=== PATIENT | male | born 1975 | race American Indian/Alaskan Native ===

== ENCOUNTER 2016-06-25 14:09 | Emergency (ER) | payer MEDICAID | END 2016-06-25 15:14 | disposition left against medical advice (07) | LOC: DL.ED 14:09 | DX: Z53.21 Procedure and treatment not carried out due to patient leaving prior to being seen by health care provider (principal) ==

== ENCOUNTER 2017-05-02 14:38 | Emergency (ER) | payer MEDICAID ==
[2017-05-02] MEDS ORDERED: Aspirin 81 MG Tab.Chew PO ONE (15:00)
--- NOTE | 2017-05-02 15:15 | EDM.PDOC ---
ED HPI GENERAL MEDICAL PROBLEM - General Chief Complaint: Chest Pain Stated Complaint: IN BY AMBULANCE Time Seen by Provider: 05/02/17 14:53 Source of Information: Reports: Patient, Family, RN, RN Notes Reviewed History Limitations: Reports: No Limitations - History of Present Illness INITIAL COMMENTS - FREE TEXT/NARRATIVE: Pt [facility] with c/o chest pain. He states he has had dull midsternal chest pain for about 1 year. He states at times it is more intense. He states he had an angiogram in [place], [place] and was told that he has 80% blockage in one of his coronary vessels. Pt states another doctor has told him that his "lungs are shot". Patient states other health problems include hypertension. Onset: Gradual, Unknown/Unsure Location: Reports: Chest Quality: Reports: Ache, Dull Severity: Moderate Improves with: Reports: None Worsens with: Reports: None Associated Symptoms: Reports: No Other Symptoms Middle Chest Pain Score (Numeric/FACES): 2 - Related Data Allergies Allergy/AdvReac Type Severity Reaction Status Date / Time No Known Allergies Allergy Verified 05/02/17 14:52 Home Meds: Home Meds Aspirin [Halfprin] 81 mg PO DAILY 09/09/13 [History] Lisinopril [Zestril] 20 mg PO DAILY 09/09/13 [History] Simvastatin [Zocor] 40 mg PO DAILY 06/03/16 [History] Past Medical History - Past Health History Medical/Surgical History: Denies Medical/Surgical History HEENT History: Reports: Impaired Vision Cardiovascular History: Reports: High Cholesterol, Hypertension Musculoskeletal History: Reports: Fracture - Infectious Disease History Infectious Disease History: Reports: Chicken Pox - Past Surgical History Cardiovascular Surgical History: Reports: None Musculoskeletal Surgical History: Reports: None Social & Family History - Family History Family Medical History: Noncontributory - Tobacco Use Smoking Status *Q: Current Every Day Smoker Years of Tobacco use: 20 Packs/Tins Daily: 0.2 - Caffeine Use Caffeine Use: Reports: Coffee - Recreational Drug Use Recreational Drug Use: No Recreational Drug Type: Reports: Marijuana/Hashish Recreational Drug Use Frequency: Socially ED ROS GENERAL - Review of Systems Review Of Systems: ROS reveals no pertinent complaints other than HPI. ED EXAM, GENERAL - Physical Exam Exam: See Below Exam Limited By: No Limitations General Appearance: Alert, WD/WN, No Apparent Distress Eye Exam: Bilateral Eye: EOMI, Normal Inspection, PERRL Ears: Normal External Exam, Hearing Grossly Normal Nose: Normal Inspection Throat/Mouth: Normal Inspection, Normal Voice, No Airway Compromise Head: Atraumatic, Normocephalic Neck: Normal Inspection, Supple, Non-Tender, Full Range of Motion Respiratory/Chest: No Respiratory Distress, No Accessory Muscle Use, Chest Non- Tender, Decreased Breath Sounds, Crackles (bases bilaterally) Cardiovascular: Normal Peripheral Pulses, Regular Rate, Rhythm, No Edema, No Gallop, No JVD, No Murmur, No Rub Peripheral Pulses: 2+: Radial (L), Radial (R) GI/Abdominal: Normal Bowel Sounds, Soft, Non-Tender, No Organomegaly, No Distention, No Abnormal Bruit, No Mass (Male) Exam: Deferred Rectal (Males) Exam: Deferred Back Exam: Normal Inspection, Full Range of Motion Extremities: Normal Inspection, Normal Range of Motion, Non-Tender, No Pedal Edema, Normal Capillary Refill Neurological: Alert, Oriented, CN II-XII Intact, Normal Cognition, Normal Gait, Normal Reflexes, No Motor/Sensory Deficits Psychiatric: Normal Affect, Normal Mood Skin Exam: Warm, Dry, Intact, Normal Color, No Rash Lymphatic: No Adenopathy EKG INTERPRETATION EKG Date: 05/02/17 Time: 14:53 Rhythm: NSR Rate (Beats/Min): 69 [place]: Normal P-Wave: Present QRS: Normal ST-T: Normal QT: Normal Comparison: Change From Previous EKG Course - Vital Signs Last Recorded V/S: Last Vital Signs Temp 98.0 F 05/02/17 14:47 Pulse 68 05/02/17 15:39 Resp 16 05/02/17 15:39 BP 122/80 05/02/17 15:39 Pulse Ox 95 05/02/17 15:39 - Orders/Labs/Meds Orders: Active Orders 24 hr Category Date Time Status EKG Documentation Completion [RC] STAT Care 05/02/17 14:59 Active Peripheral IV Care [RC] . DIRECTED Care 05/02/17 15:00 Active DRUG SCREEN URINE BIORAD [URCHEM] Stat Lab 05/02/17 15:52 Received UA W/MICROSCOPIC [URIN] Stat Lab 05/02/17 15:52 Received Sodium Chloride 0.9% [Saline Flush] Med 05/02/17 14:58 Active 10 ml FLUSH ASDIRECTED PRN Peripheral IV Insertion Adult [OM.PC] Stat Oth 05/02/17 14:59 Ordered Medication Orders Sodium Chloride (Saline Flush) 10 ml FLUSH ASDIRECTED PRN PRN Reason: Keep Vein Open Last Admin: 05/02/17 15:39 Dose: 10 ml Admin: 05/02/17 15:20 Dose: 10 ml Labs: Laboratory Tests 05/02/17 05/02/17 Range/Units 15:12 15:12 WBC 13.3 H (5.0-10.0) 10^3/uL RBC 5.11 (4.6-6.2) 10^6/uL Hgb 16.0 (14.0-18.0) g/dL Hct 47.8 (40.0-54.0) % MCV 93.5 (80-100) fL MCH 31.3 (27.0-34.0) pg MCHC 33.5 (33.0-35.0) g/dL Plt Count 266 (150-450) 10^3/uL Neut % (Auto) 70.6 (42.2-75.2) % Lymph % (Auto) 22.4 (20.5-50.1) % [place] % (Auto) 5.6 (2-8) % Eos % (Auto) 1.2 (1.0-3.0) % Baso % (Auto) 0.2 (0.0-1.0) % Sodium 138 (135-145) mmol/L Potassium 4.4 (3.6-5.0) mmol/L Chloride 104 (101-111) mmol/L Carbon Dioxide 27.0 (21.0-31.0) mmol/L Anion Gap 11.4 BUN 13 (7-18) mg/dL Creatinine 1.1 (0.6-1.3) mg/dL Est Cr Clr Drug Dosing 89.41 mL/min Estimated GFR (MDRD) > 60 BUN/Creatinine Ratio 11.81 Glucose 92 (74-105) mg/dL Calcium 9.0 (8.4-10.2) mg/dl Total Bilirubin 0.2 (0.2-1.0) mg/dL AST 21 (10-42) IU/L ALT 23 (10-60) IU/L Alkaline Phosphatase 86 (42-121) IU/L Troponin I < 0.02 (0.00-0.02) ng/ml Total Protein 7.4 (6.7-8.2) g/dl Albumin 4.3 (3.2-5.5) g/dl Globulin 3.1 Albumin/Globulin Ratio 1.39 Meds: Medications Generic Name Dose Route Start Last Admin Trade Name Freq PRN Reason Stop Dose Admin Sodium Chloride 10 ml 05/02/17 14:58 05/02/17 15:39 Saline Flush FLUSH 10 ml ASDIRECTED PRN Administration Keep Vein Open Discontinued Medications Generic Name Dose Route Start Last Admin Trade Name Freq PRN Reason Stop Dose Admin Al Hydroxide/Mg Hydroxide 30 ml 05/02/17 15:46 05/02/17 15:56 Gi Cocktail PO 05/02/17 15:47 30 ml ONETIME ONE Administration Aspirin 324 mg 05/02/17 15:00 05/02/17 15:19 Aspirin PO 05/02/17 15:01 324 mg ONETIME ONE Administration - Radiology Interpretation Free Text/Narrative:: Portable chest xray: See rad report Departure - Departure Time of Disposition: 16:21 Disposition: Home, Self-Care 01 Condition: Fair Clinical Impression: Non-cardiac chest pain Instructions: Nonspecific Chest Pain, [id number] Forms: ED Department Discharge Additional Instructions: RX: Omeprazole Follow up with your primary care facility for recheck of White blood count. - My Orders Last 24 Hours: My Active Orders 05/02/17 14:58 Sodium Chloride 0.9% [Saline Flush] 10 ml FLUSH ASDIRECTED PRN 05/02/17 14:59 EKG Documentation Completion [RC] STAT Peripheral IV Insertion Adult [OM.PC] Stat 05/02/17 15:00 Peripheral IV Care [RC] . DIRECTED 05/02/17 15:52 DRUG SCREEN URINE BIORAD [URCHEM] Stat UA W/MICROSCOPIC [URIN] Stat - Assessment/Plan Last 24 Hours: My Active Orders 05/02/17 14:58 Sodium Chloride 0.9% [Saline Flush] 10 ml FLUSH ASDIRECTED PRN 05/02/17 14:59 EKG Documentation Completion [RC] STAT Peripheral IV Insertion Adult [OM.PC] Stat 05/02/17 15:00 Peripheral IV Care [RC] . DIRECTED 05/02/17 15:52 DRUG SCREEN URINE BIORAD [URCHEM] Stat UA W/MICROSCOPIC [URIN] Stat
[2017-05-02] MEDS: Sodium Chloride 0.9% 10 ML Syringe FLUSH PRN ×2 (15:20→15:39)
[2017-05-02 15:38] LABS: ANION GAP 11.4; CHLORIDE,CL 104 mmol/L (101-111); SODIUM,NA 138 mmol/L (135-145)
[2017-05-02 15:40] VITALS: BP 122/80
[2017-05-02] MEDS ORDERED: GI Cocktail Oral Solution 30 ML PO ONE (15:46)
--- NOTE | 2017-05-02 15:57 | CR ---
Clinical history: 41-year-old male hospitalized with chest pain. Interpretation: Upright AP portable chest film unremarkable. Normal cardiac silhouette without cephalization of vascular flow, new signs of alveolar edema or depe ndent effusion (compared to August 2013 exam). No lung mass, hilar lymphadenopathy or focal lobar pneumonia. No atelectasis/collapse. No pneumothorax. CONCLUSION: No acute cardiopulmonary abnormality.
--- NOTE | 2017-05-03 15:04 | EKG ---
05/02/2017 - DILAN SOLIS - FINDINGS: This 12-lead EKG shows a normal sinus rhythm with a ventricular rate of 69. Normal axis and intervals. No acute ST-segment or T-wave changes. [facility] /[id number]
== END 2017-05-02 16:34 | disposition home or self-care (01) ==
LOC: DL.ED 14:38
DX: R07.89 Other chest pain (principal); I10 Essential (primary) hypertension; E78.00 Pure hypercholesterolemia, unspecified; F17.210 Nicotine dependence, cigarettes, uncomplicated; Z79.82 Long term (current) use of aspirin; Z79.899 Other long term (current) drug therapy
CPT/HCPCS: 36415; 71045; 80053; 80305; 81001; 84484; 85025; 93005; 99285; A9270; J7050

== ENCOUNTER 2018-06-24 15:24 | Emergency (ER) | payer MEDICAID ==
[2018-06-24] MEDS ORDERED: Sodium Chloride 0.9% 10 ML Syringe FLUSH PRN (15:39)
[2018-06-24 16:02] VITALS: BP 137/79
[2018-06-24 16:22] LABS: ANION GAP 9.5; CHLORIDE,CL 110 mmol/L (101-111); SODIUM,NA 140 mmol/L (135-145)
[2018-06-24] MEDS ORDERED: diphenhydrAMINE 50 MG/ML SDV IVPUSH ONE (16:30)
[2018-06-24] MEDS ORDERED: Ketorolac 30 MG/ML SDV IVPUSH ONE (16:30)
[2018-06-24] MEDS ORDERED: Aspirin 81 MG Tab.Chew PO ONE (16:30)
--- NOTE | 2018-06-24 16:31 | EDM.PDOC ---
<Maria Elena Gomez R - Last Filed: 06/24/18 18:11> ED HPI GENERAL MEDICAL PROBLEM - General Chief Complaint: General Stated Complaint: SOB,POSSIBLE HEART ATTACK/STOKE Time Seen by Provider: 06/24/18 15:50 Source of Information: Reports: Patient, RN, RN Notes Reviewed History Limitations: Reports: No Limitations - History of Present Illness Onset: Today Onset Date: 06/24/18 Onset Time: 11:30 Location: Reports: Chest Quality: Reports: Sharp Improves with: Reports: Rest Worsens with: Reports: Movement Associated Symptoms: Reports: Headaches, Shortness of Breath - Related Data Allergies Allergy/AdvReac Type Severity Reaction Status Date / Time No Known Allergies Allergy Verified 05/02/17 14:52 Home Meds: Home Meds Aspirin [Halfprin] 81 mg PO DAILY 09/09/13 [History] Metoprolol Succinate 25 mg PO DAILY 06/24/18 [History] Nitroglycerin 1 tab SL ASDIRECTED PRN 06/24/18 [History] Omeprazole 20 mg PO DAILY PRN 06/24/18 [History] Triamcinolone Acetonide [Triamcinolone Acetonide 0.1% Crm] 1 applic TOP BID PRN 06/24/18 [History] amLODIPine Besylate [Norvasc] 10 mg PO DAILY 06/24/18 [History] atorvaSTATin [Lipitor] 40 mg PO DAILY 06/24/18 [History] Social & Family History - Living Situation & Occupation Occupation: Employed (works at the [employer]) ED ROS GENERAL - Review of Systems Review Of Systems: See Below Constitutional: Reports: No Symptoms HEENT: Reports: Other (left side numbness) Respiratory: Reports: Shortness of Breath. Denies: Wheezing, Cough Cardiovascular: Reports: Chest Pain, Dyspnea on Exertion. Denies: Palpitations , Syncope Endocrine: Reports: No Symptoms GI/Abdominal: Reports: No Symptoms : Reports: No Symptoms Musculoskeletal: Reports: Arm Pain (left arm pain and tingling that waxs and weans. ) Skin: Reports: No Symptoms Neurological: Reports: Headache (frontal headache that wraps around the left side, denies vision changes), Numbness (to left side of face and arm), Paresthesia (left arm and ). Denies: Confusion, Syncope, Trouble Speaking, Difficulty Walking Psychiatric: Reports: No Symptoms Hematologic/Lymphatic: Reports: No Symptoms Immunologic: Reports: No Symptoms ED EXAM, GENERAL - Physical Exam Exam: See Below Exam Limited By: No Limitations General Appearance: Alert, WD/WN, Other (patient tearful while assessing, patient states due to pain. ) Ears: Normal External Exam, Normal Canal, Hearing Grossly Normal, Normal TMs Nose: Normal Inspection, Normal Mucosa, No Blood Throat/Mouth: Normal Inspection, Normal Lips, Normal Teeth, Normal Gums, Normal Oropharynx, Normal Voice, No Airway Compromise Head: Atraumatic, Normocephalic Neck: Normal Inspection, Supple, Non-Tender, Full Range of Motion Respiratory/Chest: No Respiratory Distress, Lungs Clear, Normal Breath Sounds, No Accessory Muscle Use, Other (anterior chest tender on palpation) Cardiovascular: Normal Peripheral Pulses, Regular Rate, Rhythm, No Edema, No Gallop, No JVD, No Murmur, No Rub Peripheral Pulses: 2+: Brachial (L), Brachial (R), Posterior Tibial (L), Posterior Tibial (R) GI/Abdominal: Normal Bowel Sounds, Soft, Non-Tender, No Organomegaly, No Distention, No Abnormal Bruit, No Mass (Male) Exam: Deferred Rectal (Males) Exam: Deferred Back Exam: Normal Inspection, Full Range of Motion, NT Extremities: Normal Inspection, Normal Range of Motion, Non-Tender, Normal Capillary Refill, No Pedal Edema Neurological: Alert, Oriented, CN II-XII Intact, Normal Cognition, Normal Gait, Normal Reflexes, No Motor/Sensory Deficits, Other (NIH score 0) Psychiatric: Normal Affect, Normal Mood Skin Exam: Warm, Dry, Intact, Normal Color, No Rash Lymphatic: No Adenopathy Course - Vital Signs Last Recorded V/S: Last Vital Signs Temp 37.4 C 06/24/18 15:58 Pulse 79 06/24/18 15:58 Resp 16 06/24/18 15:58 BP 137/79 06/24/18 15:58 Pulse Ox 96 06/24/18 15:58 - Orders/Labs/Meds Orders: Active Orders 24 hr Category Date Time Status EKG 12 Lead [EKG Documentation Completion] [RC] STAT Care 06/24/18 15:32 Active Peripheral IV Care [RC] . DIRECTED Care 06/24/18 15:40 Active Peripheral IV Insertion Adult [OM.PC] Routine Oth 06/24/18 15:39 Ordered Labs: Laboratory Tests 06/24/18 06/24/18 06/24/18 Range/Units 15:56 15:56 15:56 WBC 15.5 H (5.0-10.0) 10^3/uL RBC 5.21 (4.6-6.2) 10^6/uL Hgb 15.9 (14.0-18.0) g/dL Hct 48.0 (40.0-54.0) % MCV 92.1 (80-100) fL MCH 30.5 (27.0-34.0) pg MCHC 33.1 (33.0-35.0) g/dL Plt Count 279 (150-450) 10^3/uL Neut % (Auto) 76.3 H (42.2-75.2) % Lymph % (Auto) 17.1 L (20.5-50.1) % [place] % (Auto) 5.5 (2-8) % Eos % (Auto) 0.8 L (1.0-3.0) % Baso % (Auto) 0.3 (0.0-1.0) % Sodium 140 (135-145) mmol/L Potassium 3.5 L (3.6-5.0) mmol/L Chloride 110 (101-111) mmol/L Carbon Dioxide 24.0 (21.0-31.0) mmol/L Anion Gap 9.5 BUN 15 (7-18) mg/dL Creatinine 0.8 (0.6-1.3) mg/dL Est Cr Clr Drug Dosing 117.83 mL/min Estimated GFR (MDRD) > 60 BUN/Creatinine Ratio 18.75 Glucose 112 H (74-105) mg/dL Calcium 8.8 (8.4-10.2) mg/dl Total Bilirubin 0.6 (0.2-1.0) mg/dL AST 32 (10-42) IU/L ALT 27 (10-60) IU/L Alkaline Phosphatase 94 (42-121) IU/L Troponin I < 0.02 (0.00-0.02) ng/ml C-Reactive Protein 0.8 (0.0-1.3) mg/dL Total Protein 7.2 (6.7-8.2) g/dl Albumin 4.0 (3.2-5.5) g/dl Globulin 3.2 Albumin/Globulin Ratio 1.25 Meds: Medications Discontinued Medications Generic Name Dose Route Start Last Admin Trade Name Bin PRN Reason Stop Dose Admin Aspirin 324 mg 06/24/18 16:30 06/24/18 16:44 Aspirin PO 06/24/18 16:31 324 mg ONETIME ONE Administration Diphenhydramine HCl 25 mg 06/24/18 16:30 06/24/18 16:45 Benadryl IVPUSH 06/24/18 16:31 25 mg ONETIME ONE Administration Ketorolac Tromethamine 30 mg 06/24/18 16:30 06/24/18 16:47 Toradol IVPUSH 06/24/18 16:31 30 mg ONETIME ONE Administration Sodium Chloride 10 ml 06/24/18 15:39 06/24/18 15:55 Saline Flush FLUSH 10 ml ASDIRECTED PRN Administration Keep Vein Open Departure - Departure Disposition: DC/Tfer to [facility] 02 Clinical Impression: Arm paresthesia, left - Discharge Information Referrals: PCP,None [Primary Care Provider] - Forms: ED Department Discharge <Randy Mcnulty Paco - Last Filed: 06/25/18 12:47> ED HPI GENERAL MEDICAL PROBLEM - History of Present Illness INITIAL COMMENTS - FREE TEXT/NARRATIVE: Patient comes emergency department today with complaints of numbness sensation to his left arm shoulder neck and left face as well as chest pain and shortness of breath that was present all of the symptoms when he woke up at 11:00 today. He does have a history of TIA. His chest pain is sharp shooting stabbing intermittent and worse with a deep breath, movement. He complains of anxiety. Which is inducing his shortness of breath he reports. He has had no cough congestion fever or chills. He denies a headache. No visual acuity changes. No diplopia. No recent falls or head injury. No neck pain. No weakness dizziness lightheadedness. No palpitations. No syncope. He does complain of some nausea without vomiting. No diarrhea. No black or tarry stools. No bright red blood stools. No hematuria dysuria or urinary frequency. 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" Gastrointestinal History: Reports: GERD, Hemorrhoids Musculoskeletal History: Reports: Fracture Neurological History: Reports: TIA Dermatologic History: Reports: Eczema - Infectious Disease History Infectious Disease History: Reports: Chicken Pox - Past Surgical History Cardiovascular Surgical History: Reports: None Musculoskeletal Surgical History: Reports: None Social & Family History - Family History Family Medical History: Noncontributory - Tobacco Use Smoking Status *Q: Current Every Day Smoker Years of Tobacco use: 15 Packs/Tins Daily: 0.2 - Caffeine Use Caffeine Use: Reports: Coffee, Soda - Recreational Drug Use Recreational Drug Use: Yes Drug Use in Last 12 Months: Yes Recreational Drug Type: Reports: Marijuana/Hashish Recreational Drug Use Frequency: Rarely ED EXAM, GENERAL - Physical Exam Neurological: No: No Motor/Sensory Deficits (He has a dullness and change of sensation to his left arm, left neck and cheeck. DAVID stroke scale of 1. ) Course - Radiology Interpretation Free Text/Narrative:: CT scan of the head per radiology shows a hyperdense areas present within both basal ganglia likely calcifications. However a punctate hemorrhage considered less likely however not excluded. Correlate with clinical findings and short- term follow-up recommended. No mass effect or midline shift. Minimal right mastoiditis. Mild bilateral ethmoid sinusitis. - Re-Assessments/Exams Free Text/Narrative Re-Assessment/Exam: 06/24/18 Patient was initially given 324 of aspirin chewable daily. His EKG is unremarkable and no ST elevation or depression when reviewed extent previously by myself. 30th Toradol 25 mg of Benadryl. The pain in his chest and anxiety nausea in the shortness of breath resolved although the paresthesia or the altered sensation of his left arm neck and face. CT scan of the head does not show any acute infarct or bleed. But does show some chronic versus acute changes in bilateral basal ganglia. The patients altered sensation continued. I did speak with the neuro- interventionalists in [place] does not feel that they have anything to offer him at this time but a stroke evaluation is appropriate which can be completed in [place]. I called and spoke with Dr. Mireles at [facility] in [place]. HPI ER COURSE findings and concerns were relayed to Dr. Mireles who accepted the patient in transfer at this time. NO new orders. Results reviewed with the patient and he was comfortable with the plan of care. I personally performed or re-performed the physical examination and medical decision making. I have verified all student documentation or findings, including history, physical exam and/or medical decision making. Departure - Departure Time of Disposition: 18:45 - Assessment/Plan Assessment:: Left face neck and left arm parathesia Previous TIA. Plan: Transfer to [facility] for further evaluation and care.
== END 2018-06-24 19:36 ==
LOC: DL.ED 15:24
DX: R20.2 Paresthesia of skin (principal); F17.210 Nicotine dependence, cigarettes, uncomplicated; I10 Essential (primary) hypertension; Z86.73 Personal history of transient ischemic attack (TIA), and cerebral infarction without residual deficits; Z79.899 Other long term (current) drug therapy; Z79.82 Long term (current) use of aspirin
CPT/HCPCS: 36415; 70450; 71046; 80053; 84484; 85025; 86140; 93005; 96374; 96375; 99285; A9270; J1200; J1885

== ENCOUNTER 2020-01-18 02:34 | Emergency (ER) | payer MEDICAID, OTHER ==
--- NOTE | 2020-01-18 02:50 | EDM.PDOC ---
ED HPI GENERAL MEDICAL PROBLEM - General Chief Complaint: Chest Pain Stated Complaint: AMBULANCE Time Seen by Provider: 01/18/20 02:45 Source of Information: Reports: Patient History Limitations: Reports: No Limitations - History of Present Illness INITIAL COMMENTS - FREE TEXT/NARRATIVE: states was watching TV and sudden mid chest sharp pain that "fluttered". right now pain gone and feels fine. 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: IV/IO Middle Chest Pain Score (Numeric/FACES): 3 - Related Data Allergies Allergy/AdvReac Type Severity Reaction Status Date / Time No Known Allergies Allergy Verified 01/18/20 02:45 Home Meds: Home Meds Aspirin [Halfprin] 325 mg PO DAILY 09/09/13 [History] Metoprolol Succinate 50 mg PO DAILY 06/24/18 [History] Nitroglycerin 1 tab SL ASDIRECTED PRN 06/24/18 [History] Omeprazole 20 mg PO DAILY PRN 06/24/18 [History] Triamcinolone Acetonide [Triamcinolone Acetonide 0.1% Crm] 1 applic TOP BID PRN 06/24/18 [History] amLODIPine Besylate [Norvasc] 25 mg PO DAILY 06/24/18 [History] atorvaSTATin [Lipitor] 80 mg PO DAILY 06/24/18 [History] Past Medical History - Past Health History Medical/Surgical History: Denies Medical/Surgical History HEENT History: Reports: Impaired Vision Other HEENT History: wears glasses Cardiovascular History: Reports: High Cholesterol, Hypertension, Other (See Below) 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" Gastrointestinal History: Reports: GERD, Hemorrhoids Musculoskeletal History: Reports: Fracture Neurological History: Reports: TIA Dermatologic History: Reports: Eczema - Infectious Disease History Infectious Disease History: Reports: Chicken Pox - Past Surgical History Cardiovascular Surgical History: Reports: None Musculoskeletal Surgical History: Reports: None Social & Family History - Family History Family Medical History: Noncontributory - Tobacco Use Smoking Status *Q: Current Every Day Smoker Years of Tobacco use: 30 Packs/Tins Daily: 1 - Caffeine Use Caffeine Use: Reports: Soda - Alcohol Use Date of Last Drink: 01/13/20 - Recreational Drug Use Recreational Drug Use: No - Living Situation & Occupation Occupation: Employed (works at [employer]) ED ROS GENERAL - Review of Systems Review Of Systems: Comprehensive ROS is negative, except as noted in HPI. ED EXAM, GENERAL - Physical Exam Exam: See Below Exam Limited By: No Limitations General Appearance: Alert, WD/WN, No Apparent Distress Eye Exam: Bilateral Eye: PERRL (pupils ess ER @ 4mm) Ears: Hearing Grossly Normal Throat/Mouth: Normal Voice, No Airway Compromise Head: Atraumatic Neck: Non-Tender, Full Range of Motion Respiratory/Chest: No Respiratory Distress Cardiovascular: Regular Rate, Rhythm GI/Abdominal: Soft, Non-Tender (Male) Exam: Deferred Rectal (Males) Exam: Deferred Neurological: Alert, Oriented, Normal Cognition, Normal Gait, No Motor/Sensory Deficits Psychiatric: Normal Affect, Normal Mood Skin Exam: Warm, Dry, Normal Color Lymphatic: No Adenopathy Course - Vital Signs Last Recorded V/S: Last Vital Signs Temp 36.6 C 01/18/20 03:41 Pulse 62 01/18/20 03:41 Resp 15 01/18/20 03:41 BP 128/70 01/18/20 03:41 Pulse Ox 97 01/18/20 03:41 - Orders/Labs/Meds Orders: Active Orders 24 hr Category Date Time Status EKG 12 Lead [EKG Documentation Completion] [RC] STAT Care 01/18/20 02:32 Active Labs: Laboratory Tests 01/18/20 01/18/20 01/18/20 Range/Units 02:42 02:42 02:42 WBC 14.0 H (5.0-10.0) 10^3/uL RBC 5.13 (4.6-6.2) 10^6/uL Hgb 15.8 (14.0-18.0) g/dL Hct 47.8 (40.0-54.0) % MCV 93.2 (80-100) fL MCH 30.8 (27.0-34.0) pg MCHC 33.1 (33.0-35.0) g/dL Plt Count 249 (150-450) 10^3/uL Neut % (Auto) 68.5 (42.2-75.2) % Lymph % (Auto) 22.7 (20.5-50.1) % [place] % (Auto) 6.3 (2-8) % Eos % (Auto) 2.3 (1.0-3.0) % Baso % (Auto) 0.2 (0.0-1.0) % D-Dimer, Quantitative < 100 (0-400) ng/mL Sodium 142 (136-145) mmol/L Potassium 3.7 (3.5-5.1) mmol/L Chloride 105 (98-107) mmol/L Carbon Dioxide 28 (21-32) mmol/L Anion Gap 12.7 (7-13) mEq/L BUN 11 (7-18) mg/dL Creatinine 0.93 (0.70-1.30) mg/dL Est Cr Clr Drug Dosing 99.25 mL/min Estimated GFR (MDRD) > 60 BUN/Creatinine Ratio 11.8 (No establ ref range) Glucose 113 H (74-99) mg/dL Calcium 8.4 L (8.5-10.1) mg/dL Total Bilirubin 0.3 (0.2-1.0) mg/dL AST 21 (15-37) U/L ALT 42 (16-63) U/L Alkaline Phosphatase 127 H (46-116) U/L Troponin I 0.034 (0.000-0.056) ng/mL Total Protein 7.6 (6.4-8.2) g/dL Albumin 3.9 (3.4-5.0) g/dL Globulin 3.7 Albumin/Globulin Ratio 1.1 Urine Opiates Screen (NEGATIVE) Ur Oxycodone Screen (NEGATIVE) Urine Methadone Screen (NEGATIVE) Ur Barbiturates Screen (NEGATIVE) U Tricyclic Antidepress (NEGATIVE) Ur Phencyclidine Scrn (NEGATIVE) Ur Amphetamine Screen (NEGATIVE) U Methamphetamines Scrn (NEGATIVE) Urine MDMA Screen (NEGATIVE) U Benzodiazepines Scrn (NEGATIVE) Urine Cocaine Screen (NEGATIVE) U Marijuana (THC) Screen (NEGATIVE) 01/18/20 Range/Units 03:18 WBC (5.0-10.0) 10^3/uL RBC (4.6-6.2) 10^6/uL Hgb (14.0-18.0) g/dL Hct (40.0-54.0) % MCV (80-100) fL MCH (27.0-34.0) pg MCHC (33.0-35.0) g/dL Plt Count (150-450) 10^3/uL Neut % (Auto) (42.2-75.2) % Lymph % (Auto) (20.5-50.1) % [place] % (Auto) (2-8) % Eos % (Auto) (1.0-3.0) % Baso % (Auto) (0.0-1.0) % D-Dimer, Quantitative (0-400) ng/mL Sodium (136-145) mmol/L Potassium (3.5-5.1) mmol/L Chloride (98-107) mmol/L Carbon Dioxide (21-32) mmol/L Anion Gap (7-13) mEq/L BUN (7-18) mg/dL Creatinine (0.70-1.30) mg/dL Est Cr Clr Drug Dosing mL/min Estimated GFR (MDRD) BUN/Creatinine Ratio (No establ ref range) Glucose (74-99) mg/dL Calcium (8.5-10.1) mg/dL Total Bilirubin (0.2-1.0) mg/dL AST (15-37) U/L ALT (16-63) U/L Alkaline Phosphatase (46-116) U/L Troponin I (0.000-0.056) ng/mL Total Protein (6.4-8.2) g/dL Albumin (3.4-5.0) g/dL Globulin Albumin/Globulin Ratio Urine Opiates Screen Negative (NEGATIVE) Ur Oxycodone Screen Negative (NEGATIVE) Urine Methadone Screen Negative (NEGATIVE) Ur Barbiturates Screen Negative (NEGATIVE) U Tricyclic Antidepress Negative (NEGATIVE) Ur Phencyclidine Scrn Negative (NEGATIVE) Ur Amphetamine Screen Negative (NEGATIVE) U Methamphetamines Scrn Negative (NEGATIVE) Urine MDMA Screen Negative (NEGATIVE) U Benzodiazepines Scrn Negative (NEGATIVE) Urine Cocaine Screen Negative (NEGATIVE) U Marijuana (THC) Screen Positive H (NEGATIVE) - Re-Assessments/Exams Free Text/Narrative Re-Assessment/Exam: 01/18/20 03:47 results discussed with pt who remains fine and wants to go home. states been working alot all week. Departure - Departure Time of Disposition: 03:48 Disposition: Home, Self-Care 01 Condition: Good Clinical Impression: Non-cardiac chest pain Instructions: Nonspecific Chest Pain, Adult, [id number] Forms: ED Department Discharge Additional Instructions: 1) rest and avoid vigorous activities next 48 hours 2) see [facility] for STRESS TEST, ECHOCARDIOGRAM, HOLTER MONITOR 3) recheck as needed Sepsis Event Note (ED) - Evaluation Sepsis Screening Result: No Definite Risk - Focused Exam Vital Signs: Vital Signs Temp Pulse Resp BP Pulse Ox 01/18/20 03:41 36.6 C 62 15 128/70 97 01/18/20 02:37 36.5 C 66 15 157/86 H 98 - My Orders Last 24 Hours: My Active Orders 01/18/20 02:32 EKG 12 Lead [EKG Documentation Completion] [RC] STAT - Assessment/Plan Last 24 Hours: My Active Orders 01/18/20 02:32 EKG 12 Lead [EKG Documentation Completion] [RC] STAT
[2020-01-18 03:34] LABS: ANION GAP 12.7 mEq/L (7-13); CHLORIDE,CL 105 mmol/L (98-107); SODIUM,NA 142 mmol/L (136-145)
[2020-01-18 03:42] VITALS: BP 128/70; PULSE 62
== END 2020-01-18 03:53 | disposition home or self-care (01) ==
LOC: DL.ED 02:34
DX: R07.89 Other chest pain (principal); K21.9 Gastro-esophageal reflux disease without esophagitis; E78.00 Pure hypercholesterolemia, unspecified; I10 Essential (primary) hypertension; F17.210 Nicotine dependence, cigarettes, uncomplicated; Z86.73 Personal history of transient ischemic attack (TIA), and cerebral infarction without residual deficits; Z79.82 Long term (current) use of aspirin; Z79.899 Other long term (current) drug therapy
CPT/HCPCS: 36415; 80053; 80305-QW; 84484; 85025; 85379; 93005; 99283; 99285-25

== ENCOUNTER 2020-06-04 23:32 | Emergency (ER) | payer OTHER ==
[2020-06-04 23:48] VITALS: BP 140/77; PULSE 68
--- NOTE | 2020-06-04 23:50 | EDM.PDOC ---
ED HPI GENERAL MEDICAL PROBLEM - General Chief Complaint: Chest Pain Stated Complaint: ambulance Time Seen by Provider: 06/04/20 23:50 Source of Information: Reports: Patient, RN, RN Notes Reviewed History Limitations: Reports: No Limitations - History of Present Illness INITIAL COMMENTS - FREE TEXT/NARRATIVE: Patient is a 44 year old male who presents to ER with c/o left anterior chest pain, neck pain, left arm numbness/tingling and left leg numbness/tingling. Patient states about 10pm he felt his arm became numb. He states he was afraid he was having a stroke, and felt he maybe worked himself up. Patient states he has had a TIA in the past as well has a cardiac blockage. Patient recently had an echocardiogram and has an appt to see his hoe runner on June 22. Patient reports hx of hypertension, hyperlipidemia. 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 Patient states currently he feels as though he has acid indigestion, and fells the numbness is much improved from when it started. Patient states he feels he slept wrong, causing the neck pain and some of the numbness. NIH=0 Onset: Today, Gradual Left Anterior Chest Pain Score (Numeric/FACES): 1 - Related Data Allergies Allergy/AdvReac Type Severity Reaction Status Date / Time No Known Allergies Allergy Verified 06/04/20 23:48 Home Meds: Home Meds Aspirin [Halfprin] 325 mg PO DAILY 09/09/13 [History] Metoprolol Succinate 50 mg PO DAILY 06/24/18 [History] Nitroglycerin 1 tab SL ASDIRECTED PRN 06/24/18 [History] Omeprazole 20 mg PO DAILY PRN 06/24/18 [History] Triamcinolone Acetonide [Triamcinolone Acetonide 0.1% Crm] 1 applic TOP BID PRN 06/24/18 [History] amLODIPine Besylate [Norvasc] 10 mg PO DAILY 06/24/18 [History] atorvaSTATin [Lipitor] 80 mg PO DAILY 06/24/18 [History] Cholecalciferol (Vitamin D3) [Vitamin D3] 1,000 units PO DAILY 05/04/20 [History ] Past Medical History - Past Health History Medical/Surgical History: Denies Medical/Surgical History HEENT History: Reports: Impaired Vision Other HEENT History: wears glasses Cardiovascular History: Reports: High Cholesterol, Hypertension, Other (See [place]) 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" Gastrointestinal History: Reports: GERD, Hemorrhoids Musculoskeletal History: Reports: Fracture Neurological History: Reports: TIA Dermatologic History: Reports: Eczema - Infectious Disease History Infectious Disease History: Reports: Chicken Pox - Past Surgical History Cardiovascular Surgical History: Reports: None Musculoskeletal Surgical History: Reports: None Social & Family History - Family History Family Medical History: No Pertinent Family History - Tobacco Use Tobacco Use Status *Q: Current Every Day Tobacco User Years of Tobacco use: 16 Packs/Tins Daily: 0.5 - Caffeine Use Caffeine Use: Reports: Coffee, Energy Drinks, Soda - Alcohol Use Date of Last Drink: 06/01/20 - Recreational Drug Use Recreational Drug Use: No - Living Situation & Occupation Occupation: Employed (works at the [email or web address]) ED ROS GENERAL - Review of Systems Review Of Systems: Comprehensive ROS is negative, except as noted in HPI. ED EXAM, GENERAL - Physical Exam Exam: See Below Exam Limited By: No Limitations General Appearance: Alert, WD/WN, No Apparent Distress Eye Exam: Bilateral Eye: EOMI, Normal Inspection Ears: Normal External Exam, Hearing Grossly Normal Nose: Normal Inspection Throat/Mouth: Normal Inspection, Normal Voice, No Airway Compromise Head: Atraumatic, Normocephalic Neck: Normal Inspection, Supple, Full Range of Motion, Tender Lateral Respiratory/Chest: No Respiratory Distress, Normal Breath Sounds, No Accessory Muscle Use, Chest Non-Tender, Decreased Breath Sounds Cardiovascular: Normal Peripheral Pulses, Regular Rate, Rhythm, No Edema, No Gallop, No JVD, No Murmur, No Rub Peripheral Pulses: 2+: Radial (L), Radial (R) GI/Abdominal: Normal Bowel Sounds, Soft, Non-Tender (Male) Exam: Deferred Rectal (Males) Exam: Deferred Back Exam: Normal Inspection, Full Range of Motion, NT Extremities: Normal Inspection, Normal Range of Motion, Non-Tender, Normal Capillary Refill, No Pedal Edema Neurological: Alert, Oriented, CN II-XII Intact, Normal Cognition, Normal Gait, Normal Reflexes, No Motor/Sensory Deficits Psychiatric: Normal Affect, Normal Mood Skin Exam: Warm, Dry, Intact, Normal Color, No Rash Lymphatic: No Adenopathy #1 Interpretation EKG Date: 06/04/20 Time: 23:36 Rhythm: NSR Rate (Beats/Min): 64 [place]: Normal P-Wave: Present QRS: Normal ST-T: Normal QT: Normal Comparison: No Change Course - Vital Signs Last Recorded V/S: Last Vital Signs Temp 96.9 F 06/04/20 23:33 Pulse 68 06/04/20 23:33 Resp 16 06/04/20 23:33 BP 140/77 06/04/20 23:33 Pulse Ox 96 06/04/20 23:33 - Orders/Labs/Meds Orders: Active Orders 24 hr Category Date Time Status EKG Documentation Completion [RC] STAT Care 06/04/20 23:51 Active EKG Documentation Completion [RC] STAT Care 06/05/20 04:00 Active Labs: Laboratory Tests 06/04/20 06/04/20 06/04/20 Range/Units 23:53 23:59 23:59 WBC 13.5 H (5.0-10.0) 10^3/uL RBC 5.10 (4.6-6.2) 10^6/uL Hgb 15.8 (14.0-18.0) g/dL Hct 47.3 (40.0-54.0) % MCV 92.7 (80-100) fL MCH 31.0 (27.0-34.0) pg MCHC 33.4 (33.0-35.0) g/dL Plt Count 251 (150-450) 10^3/uL Neut % (Auto) 62.1 (42.2-75.2) % Lymph % (Auto) 27.8 (20.5-50.1) % [place] % (Auto) 6.5 (2-8) % Eos % (Auto) 3.4 H (1.0-3.0) % Baso % (Auto) 0.2 (0.0-1.0) % PT 9.5 (9.0-12.0) SEC INR 1.0 (0.9-1.2) Sodium (136-145) mmol/L Potassium (3.5-5.1) mmol/L Chloride (98-107) mmol/L Carbon Dioxide (21-32) mmol/L Anion Gap (7-13) mEq/L BUN (7-18) mg/dL Creatinine (0.70-1.30) mg/dL Est Cr Clr Drug Dosing mL/min Estimated GFR (MDRD) BUN/Creatinine Ratio (No establ ref range) Glucose (74-99) mg/dL Calcium (8.5-10.1) mg/dL Total Bilirubin (0.2-1.0) mg/dL AST (15-37) U/L ALT (16-63) U/L Alkaline Phosphatase (46-116) U/L Troponin I (0.000-0.056) ng/mL Total Protein (6.4-8.2) g/dL Albumin (3.4-5.0) g/dL Globulin Albumin/Globulin Ratio Urine Color Yellow (YELLOW) Urine Appearance Clear (CLEAR) Urine pH 7.0 (5.0-9.0) Ur Specific [place] 1.015 (1.005-1.030) Urine Protein Negative (NEGATIVE) Urine Glucose (UA) Negative (NEGATIVE) Urine Ketones Negative (NEGATIVE) Urine Occult Blood Negative (NEGATIVE) Urine Nitrite Negative (NEGATIVE) Urine Bilirubin Negative (NEGATIVE) Urine Urobilinogen 0.2 (0.2-1.0) mg/dL Ur Leukocyte Esterase Negative (NEGATIVE) 06/04/20 06/05/20 Range/Units 23:59 04:01 WBC (5.0-10.0) 10^3/uL RBC (4.6-6.2) 10^6/uL Hgb (14.0-18.0) g/dL Hct (40.0-54.0) % MCV (80-100) fL MCH (27.0-34.0) pg MCHC (33.0-35.0) g/dL Plt Count (150-450) 10^3/uL Neut % (Auto) (42.2-75.2) % Lymph % (Auto) (20.5-50.1) % [place] % (Auto) (2-8) % Eos % (Auto) (1.0-3.0) % Baso % (Auto) (0.0-1.0) % PT (9.0-12.0) SEC INR (0.9-1.2) Sodium 139 (136-145) mmol/L Potassium 3.8 (3.5-5.1) mmol/L Chloride 102 (98-107) mmol/L Carbon Dioxide 26 (21-32) mmol/L Anion Gap 14.8 H (7-13) mEq/L BUN 15 (7-18) mg/dL Creatinine 0.82 (0.70-1.30) mg/dL Est Cr Clr Drug Dosing 112.56 mL/min Estimated GFR (MDRD) > 60 BUN/Creatinine Ratio 18.3 (No establ ref range) Glucose 106 H (74-99) mg/dL Calcium 8.4 L (8.5-10.1) mg/dL Total Bilirubin 0.3 (0.2-1.0) mg/dL AST 17 (15-37) U/L ALT 38 (16-63) U/L Alkaline Phosphatase 128 H (46-116) U/L Troponin I 0.028 0.025 (0.000-0.056) ng/mL Total Protein 7.3 (6.4-8.2) g/dL Albumin 3.7 (3.4-5.0) g/dL Globulin 3.6 Albumin/Globulin Ratio 1.0 Urine Color (YELLOW) Urine Appearance (CLEAR) Urine pH (5.0-9.0) Ur Specific [place] (1.005-1.030) Urine Protein (NEGATIVE) Urine Glucose (UA) (NEGATIVE) Urine Ketones (NEGATIVE) Urine Occult Blood (NEGATIVE) Urine Nitrite (NEGATIVE) Urine Bilirubin (NEGATIVE) Urine Urobilinogen (0.2-1.0) mg/dL Ur Leukocyte Esterase (NEGATIVE) - Radiology Interpretation Free Text/Narrative:: Chest xray: PROCEDURE INFORMATION: Exam: XR Chest, 1 View Exam date and time: 06/05/2020 12:11 AM Age: 44 years old Clinical indication: Other: Chest pain TECHNIQUE: Imaging protocol: XR of the chest Views: 1 view. COMPARISON: CR Chest 2V 06/24/2018 3:42 PM FINDINGS: Lungs: Unremarkable. No consolidation. Pleural spaces: Unremarkable. No pleural effusion. No pneumothorax. Heart/Mediastinum: Unremarkable. No cardiomegaly. Bones/joints: Unremarkable. IMPRESSION: No acute findings. Thank you for allowing us to participate in the care of your patient. Dictated and Authenticated by: Leopoldo Parada MD 06/05/2020 12:26 AM Central Time ([place] & [place]) See rad report - Re-Assessments/Exams Free Text/Narrative Re-Assessment/Exam: 06/05/20 00:29 Patient reports numbness and tingling has resolved completely, and he is completely pain free at this time. He states he feels he is "overtired". Departure - Departure Time of Disposition: 04:38 Disposition: Home, Self-Care 01 Reason for Transfer *Q: Other Condition: Good Clinical Impression: Chest pain Qualifiers: Chest pain type: unspecified Qualified Code(s): R07.9 - Chest pain, unspecified Instructions: Nonspecific Chest Pain, Adult, [id number] Forms: ED Department Discharge Additional Instructions: Rest Follow up with your primary care facility and cardiology Return to the ER with any worsening of problems Sepsis Event Note (ED) - Evaluation Sepsis Screening Result: No Definite Risk - Focused Exam Vital Signs: Vital Signs Temp Pulse Resp BP Pulse Ox 06/04/20 23:33 96.9 F 68 16 140/77 96 - My Orders Last 24 Hours: My Active Orders 06/04/20 23:51 EKG Documentation Completion [RC] STAT 06/05/20 04:00 EKG Documentation Completion [RC] STAT - Assessment/Plan Last 24 Hours: My Active Orders 06/04/20 23:51 EKG Documentation Completion [RC] STAT 06/05/20 04:00 EKG Documentation Completion [RC] STAT
--- NOTE | 2020-06-05 00:26 | CR ---
PROCEDURE INFORMATION: Exam: XR Chest, 1 View Exam date and time: 06/05/2020 12:11 AM Age: 44 years old Clinical indication: Other: Chest pain TECHNIQUE: Imaging protocol: XR of the chest Views: 1 view. COMPARISON: CR Chest 2V 06/24/2018 3:42 PM FINDINGS: Lungs: Unremarkable. No consolidation. Pleural spaces: Unremarkable. No pleural effusion. No pneumothorax. Heart/Mediastinum: Unremarkable. No cardiomegaly. Bones/joints: Unremarkable. IMPRESSION: No acute findings.
[2020-06-05 00:29] LABS: ANION GAP 14.8 mEq/L (7-13); CHLORIDE,CL 102 mmol/L (98-107); SODIUM,NA 139 mmol/L (136-145)
== END 2020-06-05 04:47 | disposition home or self-care (01) ==
LOC: DL.ED 23:32
DX: R07.9 Chest pain, unspecified (principal); E78.00 Pure hypercholesterolemia, unspecified; I10 Essential (primary) hypertension; K21.9 Gastro-esophageal reflux disease without esophagitis; Z86.73 Personal history of transient ischemic attack (TIA), and cerebral infarction without residual deficits; Z79.82 Long term (current) use of aspirin; Z79.899 Other long term (current) drug therapy; Z72.0 Tobacco use
CPT/HCPCS: 36415; 71045; 80053; 81003; 84484; 85025; 85610; 93005; 99285-25

== ENCOUNTER 2020-06-13 19:07 | Emergency (ER) | payer OTHER ==
[2020-06-13 19:16] VITALS: BP 137/84; PULSE 68
--- NOTE | 2020-06-13 19:50 | EDM.PDOC ---
ED HPI GENERAL MEDICAL PROBLEM - General Chief Complaint: Gastrointestinal Problem Stated Complaint: CONSTIPATED FOR 5 DAYS. MAKING IT HARD TO BREATH Time Seen by Provider: 06/13/20 19:30 Source of Information: Reports: Patient, Family, RN, RN Notes Reviewed History Limitations: Reports: No Limitations - History of Present Illness INITIAL COMMENTS - FREE TEXT/NARRATIVE: Patient is a 44-year-old male who presents to ER with complaint of abdominal pain, epigastric burning, causing shortness of breath. Patient states he has been unable to have a bowel movement for the past 5 days. States he has tried stool softeners and suppositories and has very little results. Patient states stool is brown. States he has a history of hemorrhoids, and has had some blood streaking with the bowel movement. Denies any fever chills. Denies any nausea or vomiting, diarrhea. States he does feel like his abdomen is pushing up, some epigastric burning he reports. Patient denies any problems with urination such as frequency, urgency, burning with urination. Does report some abdominal pain wrapping around the right flank. Onset: Gradual Abdomen Pain Score (Numeric/FACES): 7 - Related Data Allergies Allergy/AdvReac Type Severity Reaction Status Date / Time No Known Allergies Allergy Verified 06/13/20 19:15 Home Meds: Home Meds Aspirin [Halfprin] 325 mg PO DAILY 09/09/13 [History] Metoprolol Succinate 50 mg PO DAILY 06/24/18 [History] Nitroglycerin 1 tab SL ASDIRECTED PRN 06/24/18 [History] Omeprazole 20 mg PO DAILY PRN 06/24/18 [History] Triamcinolone Acetonide [Triamcinolone Acetonide 0.1% Crm] 1 applic TOP BID PRN 06/24/18 [History] amLODIPine Besylate [Norvasc] 10 mg PO DAILY 06/24/18 [History] atorvaSTATin [Lipitor] 80 mg PO DAILY 06/24/18 [History] Cholecalciferol (Vitamin D3) [Vitamin D3] 1,000 units PO DAILY 05/04/20 [History] Past Medical History - Past Health History Medical/Surgical History: Denies Medical/Surgical History HEENT History: Reports: Impaired Vision Other HEENT History: wears glasses Cardiovascular History: Reports: High Cholesterol, Hypertension, Other (See Below) 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" Gastrointestinal History: Reports: GERD, Hemorrhoids Musculoskeletal History: Reports: Fracture Neurological History: Reports: TIA Dermatologic History: Reports: Eczema - Infectious Disease History Infectious Disease History: Reports: Chicken Pox - Past Surgical History Cardiovascular Surgical History: Reports: None Musculoskeletal Surgical History: Reports: None Social & Family History - Family History Family Medical History: No Pertinent Family History - Tobacco Use Tobacco Use Status *Q: Current Every Day Tobacco User Years of Tobacco use: 15 Packs/Tins Daily: 0.5 Second Hand Smoke Exposure: Yes - Caffeine Use Caffeine Use: Reports: Soda - Recreational Drug Use Recreational Drug Use: No - Living Situation & Occupation Occupation: Employed (works at [employer]) ED ROS GENERAL - Review of Systems Review Of Systems: Comprehensive ROS is negative, except as noted in HPI. ED EXAM, GI/ABD - Physical Exam Exam: See Below Exam Limited By: No Limitations General Appearance: Alert, WD/WN, Mild Distress Eyes: Bilateral: Normal Appearance, EOMI Ears: Normal External Exam, Hearing Grossly Normal Nose: Normal Inspection Throat/Mouth: Normal Inspection, Normal Voice, No Airway Compromise Head: Atraumatic, Normocephalic Neck: Normal Inspection, Supple, Non-Tender, Full Range of Motion Respiratory/Chest: No Respiratory Distress, Lungs Clear, Normal Breath Sounds, No Accessory Muscle Use, Chest Non-Tender Cardiovascular: Normal Peripheral Pulses, Regular Rate, Rhythm, No Edema, No Gallop, No JVD, No Murmur, No Rub GI/Abdominal Exam: Normal Bowel Sounds, No Organomegaly, Distended, Tender (generalized) (Male) Exam: Deferred Rectal (Males) Exam: Deferred Back Exam: Normal Inspection, Full Range of Motion, CVA Tenderness (R) Extremities: Normal Inspection, Normal Range of Motion, Non-Tender, Normal Capillary Refill, No Pedal Edema Neurological: Alert, Oriented, CN II-XII Intact, Normal Cognition, Normal Gait, Normal Reflexes, No Motor/Sensory Deficits Psychiatric: Normal Affect, Normal Mood Skin Exam: Warm, Dry, Intact, Normal Color, No Rash Lymphatic: No Adenopathy Course - Vital Signs Last Recorded V/S: Last Vital Signs Temp 97.5 F 06/13/20 19:11 Pulse 68 06/13/20 19:11 Resp 18 06/13/20 19:11 BP 137/84 06/13/20 19:11 Pulse Ox 98 02/21/21 19:11 - Orders/Labs/Meds Orders: Active Orders 24 hr Category Date Time Status URINALYSIS W/MICROSCOPIC [UA W/MICROSCOPIC] [URIN] Stat Lab 06/13/20 19:42 Results Magnesium Citrate [Citrate of Magnesia] Med 06/13/20 20:03 Once 296 ml PO ONETIME ONE Labs: Laboratory Tests 06/13/20 Range/Units 19:42 Urine Color Yellow (YELLOW) Urine Appearance Cloudy (CLEAR) Urine pH 7.5 (5.0-9.0) Ur Specific [place] 1.025 (1.005-1.030) Urine Protein Negative (NEGATIVE) Urine Glucose (UA) Negative (NEGATIVE) Urine Ketones Negative (NEGATIVE) Urine Occult Blood Negative (NEGATIVE) Urine Nitrite Negative (NEGATIVE) Urine Bilirubin Negative (NEGATIVE) Urine Urobilinogen 0.2 (0.2-1.0) mg/dL Ur Leukocyte Esterase Negative (NEGATIVE) - Radiology Interpretation Free Text/Narrative:: Abdominal flal and upright xray: PROCEDURE INFORMATION: Exam: XR Abdomen, 2 Views Exam date and time: 06/13/2020 7:36 PM Age: 44 years old Clinical indication: Other: Pain; Additional info: Constipation TECHNIQUE: Imaging protocol: XR of the abdomen. Views: 2 Views. COMPARISON: No relevant prior studies available. FINDINGS: Gastrointestinal tract: Normal. No bowel dilation. Moderate amount of stool is present within the colon predominantly within the ascending colon. Intraperitoneal space: Normal. No free air. Bones/joints: Unremarkable for age. IMPRESSION: Possible mild constipation without obstruction. Thank you for allowing us to participate in the care of your patient. Dictated and Authenticated by: Hunter Cheema MD 06/13/2020 7:54 PM Central Time ([place] & [place]) See rad report Departure - Departure Time of Disposition: 20:04 Disposition: Home, Self-Care 01 Condition: Good Clinical Impression: Constipation Qualifiers: Constipation type: unspecified constipation type Qualified Code(s): K59.00 - Constipation, unspecified - Discharge Information *PRESCRIPTION DRUG MONITORING PROGRAM REVIEWED*: No *COPY OF PRESCRIPTION DRUG MONITORING REPORT IN PATIENT BARBARA: No Instructions: Constipation, Adult, [id number] Forms: ED Department Discharge Additional Instructions: May use Magnesium Citrate over the counter as directed for constipation May start an over the counter stool softener for regulation of Bowel movements Drink plenty of water Follow up with your primary care facility if no improvement May also use Miralax over the counter as directed for constipation Sepsis Event Note (ED) - Evaluation Sepsis Screening Result: No Definite Risk - Focused Exam Vital Signs: Vital Signs Temp Pulse Resp BP Pulse Ox 06/13/20 19:11 97.5 F 68 18 137/84 98 - My Orders Last 24 Hours: My Active Orders 06/13/20 19:42 URINALYSIS W/MICROSCOPIC [UA W/MICROSCOPIC] [URIN] Stat 06/13/20 20:03 Magnesium Citrate [Citrate of Magnesia] 296 ml PO ONETIME ONE - Assessment/Plan Last 24 Hours: My Active Orders 06/13/20 19:42 URINALYSIS W/MICROSCOPIC [UA W/MICROSCOPIC] [URIN] Stat 06/13/20 20:03 Magnesium Citrate [Citrate of Magnesia] 296 ml PO ONETIME ONE
--- NOTE | 2020-06-13 19:54 | CR ---
PROCEDURE INFORMATION: Exam: XR Abdomen, 2 Views Exam date and time: 06/13/2020 7:36 PM Age: 44 years old Clinical indication: Other: Pain; Additional info: Constipation TECHNIQUE: Imaging protocol: XR of the abdomen. Views: 2 Views. COMPARISON: No relevant prior studies available. FINDINGS: Gastrointestinal tract: Normal. No bowel dilation. Moderate amount of stool is present within the colon predominantly within the ascending colon. Intraperitoneal space: Normal. No free air. Bones/joints: Unremarkable for age. IMPRESSION: Possible mild constipation without obstruction.
[2020-06-13] MEDS ORDERED: Magnesium Citrate Solution 296 ML Bottle PO ONE (20:03)
== END 2020-06-13 20:09 | disposition home or self-care (01) ==
LOC: DL.ED 19:07
DX: K59.00 Constipation, unspecified (principal); R06.02 Shortness of breath; E78.00 Pure hypercholesterolemia, unspecified; I10 Essential (primary) hypertension; K21.9 Gastro-esophageal reflux disease without esophagitis; Z72.0 Tobacco use; Z79.82 Long term (current) use of aspirin; Z79.899 Other long term (current) drug therapy
CPT/HCPCS: 74019; 81001; 99283; A9270

== ENCOUNTER 2021-07-13 21:13 | Emergency (ER) | payer OTHER ==
[2021-07-13 21:53] VITALS: BP 149/91; PULSE 67
[2021-07-13 22:28] LABS: CHLORIDE,CL 104 mmol/L (98-107); SODIUM,NA 142 mmol/L (136-145)
[2021-07-14 03:27] LABS: CORONAVIRUS COVID-19 NAA NEGATIVE (NEGATIVE)
== END 2021-07-13 23:47 | disposition home or self-care (01) ==
LOC: DL.ED 21:13
DX: R06.02 Shortness of breath (principal); Z20.822 Contact with and (suspected) exposure to COVID-19
CPT/HCPCS: 0240U; 36415; 71046; 74018; 80053; 83690; 83880; 84484; 85025; 93005; 99285